=== PATIENT | female | born 1975 | race Caucasian/White ===

== ENCOUNTER 2021-02-23 16:33 | Emergency (ER) | payer OTHER ==
[~2021-02-23] VITALS: Ht 149.9 cm; Wt 53.5 kg
[2021-02-23 16:35] VITALS: BP 114/72
--- NOTE | 2021-02-23 16:53 | NUR ---
AT BEDSIDE FOR EVAL.
--- NOTE | 2021-02-23 17:00 | NUR ---
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
--- NOTE | 2021-02-23 17:39 | NUR ---
Patient discharged to home in stable condition. Written and verbal after care instructions given. Patient verbalizes understanding of instruction.
== END 2021-02-23 17:40 | disposition home or self-care (01) ==
LOC: ER 16:54
DX: S93.491A Sprain of other ligament of right ankle, initial encounter (principal); X58.XXXA Exposure to other specified factors, initial encounter; Y93.89 Activity, other specified; Y92.89 Other specified places as the place of occurrence of the external cause; Y99.8 Other external cause status
CPT/HCPCS: 73610-TC

== ENCOUNTER 2022-07-14 23:19 | Emergency (ER) | payer OTHER ==
[~2022-07-14] VITALS: Ht 149.9 cm; Wt 67.6 kg
[2022-07-14 23:47] VITALS: BP 126/66
--- NOTE | 2022-07-14 23:50 | NUR ---
DR. LAW SAMANIEGO AT PT'S BEDSIDE
[2022-07-14] MEDS ORDERED: BACI3.5O23 RIGHTEYE (23:58)
== END 2022-07-15 00:05 | disposition home or self-care (01) ==
LOC: ER 23:24
DX: H00.021 Hordeolum internum right upper eyelid (principal)